=== PATIENT | male | born 2000 | race Two or more races ===

== ENCOUNTER 2025-01-15 15:36 | Emergency (ER) | payer MEDICAID, SELFPAY ==
[2025-01-15 16:04] VITALS: BP 104/73; PULSE 90; RESP 18; TEMP 38.1; O2SAT 99; BMI 22.3
[2025-01-15] MEDS: cefTRIAXone SOD INJ 1,000 MG VIAL 1000 MG IM (16:24)
[2025-01-15] MEDS: IBUPROFEN TAB 600 MG TABLET PO (16:24)
[2025-01-15] MEDS: DEXAMETHASONE SOD PHOS INJ 10 MG/ML VIAL PO (16:26)
[2025-01-15] MEDS: LIDOCAINE HCL 1% 20 ML VIAL 2.1 ML INFL (16:27)
--- NOTE | 2025-01-15 16:28 | EDNOTE_ITS ---
ED Fever RME/HPI General Chief Complaint: Fever Stated Complaint: FEVER, BACK PAIN. BUMPS IN MOUTH Time Seen by Provider: 01/15/25 15:44 Arrival date/time: 01/15/25 15:36 24-year-old male with no significant medical problems presents to the emergency department today for complaints of fever, lower back pain, sore throat ongoing since yesterday Limitations: no limitations Related Data Previous Rx's ?Medication ?Instructions ?Recorded amoxicillin 875 mg-potassium 1 tab PO BID 7 days #14 t abs 01/15/25 clavulanate 125 mg tablet ibuprofen 600 mg tablet 600 mg PO Q6H #30 tabs 01/15 Allergies Allergy/AdvReac Type Severity Reaction Status Date / Time No Known Allergies Allergy Verified 01/15/25 15:38 Review of Systems Review of Systems Systems Reviewed: All systems reviewed, normal except as documented Constitutional Constitutional: Reports system reviewed and no additional complaints, except as documented, Denies fever(s) and Denies headache(s) Eyes Eyes: Reports system reviewed and no additional complaints, except as documented and Denies blurry vision ENT Ears, Nose, Mouth, and Throat: Reports system reviewed and no additional complai nts, except as documented, Denies headache(s), Denies nasal congestion, Denies nasal discharge and Reports sore throat Cardiovascular Cardiovascular: Reports system reviewed and no additional complaints, except as documented, Denies chest pain and Denies dyspnea Respiratory Respiratory: Reports system reviewed and no additional complaints, except as documented, Denies chest congestion, Denies cough and Denies dyspnea Gastrointestinal Gastrointestinal: Reports system reviewed and no additional complaints, except as documented and Denies abdominal pain Integumentary/Breasts Skin/Breast: Reports system reviewed and no additional complaints, except as documented and Denies rash Neurologic Neurologic: Reports system reviewed and no additional complaints, except as documented, Reports as per HPI and Denies headache(s) Past Medical History Social History SMOKING STATUS: Never smoker Physical Exam General Limitations: no limitations General appearance: alert and in no apparent distress Head Head exam: atraumatic Eye Eye exam: Present normal appearance, PERRL and EOMI ENT ENT exam: Present normal oropharynx and mucous membranes moist Expanded ENT Exam Mouth exam: Absent drooling or trismus Throat exam: Present tonsillar erythema, tonsillomegaly and tonsillar exudate; Absent R peritonsillar mass, L peritonsillar mass or muffled voice Neck Neck exam: Present normal inspection, full ROM and trachea midline Chest Chest inspection: Present normal inspection and symmetric chest wall rise Respiratory Respiratory exam: Present normal lung sounds bilaterally Cardiovascular Cardiovascular exam: Present regular rate, normal rhythm and normal heart sounds Abdominal Exam Abdominal exam: Present soft and normal bowel sounds Extremities Exam Extremities exam: Present normal inspection and full ROM Back Exam Back exam: Present normal inspection and full ROM Neurological Exam Neurological exam: Present alert, oriented X3 and CN II-XII intact Psychiatric Psychiatric exam: Present normal affect and normal mood Skin Skin exam: Present warm, dry, intact and normal color ED Exam General Limitations: Present no limitations General appearance: Present alert and in no apparent distress Head Head exam: Present atraumatic Eye Eye exam: Present normal appearance, PERRL and EOMI ENT ENT exam: Present normal oropharynx and mucous membranes moist Expanded ENT Exam Mouth exam: Absent drooling or trismus Throat exam: Present tonsillar erythema, tonsillomegaly and tonsillar exudate; Absent R peritonsillar mass, L peritonsillar mass or muffled voice Neck Neck exam: Present normal inspection, full ROM and trachea midline Chest Chest inspection: Present normal inspection and symmetric chest wall rise Respiratory Respiratory exam: Present normal lung sounds bilaterally Cardiovascular Cardiovascular exam: Present regular rate, normal rhythm and normal heart sounds Abdominal Exam Abdominal exam: Present soft and normal bowel sounds Extremities Exam Extremities exam: Present normal inspection and full ROM Back Exam Back exam: Present normal inspection and full ROM Neurological Exam Neurological exam: Present alert, oriented X3 and CN II-XII intact Psychiatric Psychiatric exam: Present normal affect and normal mood Skin Skin exam: Present warm, dry, intact and normal color Course Quality Measures none Orders Category Date Time Status Dexamethasone Inj [Decadron Inj] Med 01/15/25 16:12 Discontinued 10 mg PO X1 ONE Ibuprofen Tab [Motrin Tab] Med 01/15/25 16:12 Discontinued 600 mg PO Q8HR PRN Lidocaine 1% 20 ml [Xylocaine 1% 20 ML] Med 01/15/25 16:12 Discontinued 2.1 ml INFL X1 ONE cefTRIAXone [Rocephin] Med 01/15/25 16:12 Discontinued 1,000 mg IM X1 ONE Vital Signs Vital signs: Vital Signs Temperature 100.5 F H 01/15/25 16:04 Pulse Rate 90 01/15/25 16:04 Respiratory Rate 18 06/17/25 16:04 Blood Pressure 104/73 01/15/25 16:04 Pulse Oximetry (%) 99 01/15/25 16:04 Oxygen Delivery Method Room Air 01/15/25 16:04 O2 saturation 99% room air within normal notes Fever MDM Narrative MDM Narrative:: 24-year-old male with no significant medical problems presents to the emergency department today for complaints of fever, lower back pain, sore throat ongoing since yesterday On exam patient has low-grade temp and appears to have streptococcal pharyngitis Patient medicated here patient does not appear ill or toxic in no acute distress despite having low-grade temp patient has no abdominal pain Patient discharged home in no distress to follow-up with primary care doctor in the next 24 to 48 hours and for any worsening symptoms to return to the ER immediately Patient data External records reviewed:: None Clinical information provided by:: patient Social determinants that could affect healthcare access:: none Patient has the following chronic illnesses:: None How is presenting disease/condition affected by chronic disease/condition?: no chronic disease Evaluation data The following diagnostics were reviewed and interpreted by me:: other (specify) (N/A) Lab and/or radiology exams considered but not ordered:: Consider not ordered Interpretation Summary: N/A Medications / Prescriptions Medications or Prescriptions considered but not ordered:: Given Medication administrations:: Medication Administration History Discontinued Medications Ceftriaxone Sodium (Ceftriaxone Sod Inj 1,000 Mg Vial) 1,000 mg IM X1 ONE Stop: 01/15/25 16:13 Last Admin: 01/15/25 16:24 Dose: 1,000 mg Documented By: MAHOGANY Dexamethasone Sodium Phosphate (Dexamethasone Sod Phos Inj 10 Mg/Ml Vial) 10 mg PO X1 ONE Stop: 01/15/25 16:13 Last Admin: 01/15/25 16:26 Dose: 10 mg Documented By: MAHOGANY Ibuprofen (Ibuprofen Tab 600 Mg Tablet) 600 mg PO Q8HR PRN PRN Reason: PAIN OR FEVER > 101 Stop: 02/14/25 16:11 Last Admin: 01/15/25 16:24 Dose: 600 mg Documented By: MAHOGANY Lidocaine HCl (Lidocaine Hcl 1% 20 Ml Vial) 2.1 ml INFL X1 ONE Stop: 01/15/25 16:13 Last Admin: 01/15/25 16:27 Dose: 2.1 ml Documented By: KF Given Consultations Consultation(s) initiated? (list below): No Diagnosis Fever Differential Diagnosis: fever of unknown origin, viral infection, influenza and other (Pharyngitis) Most likely diagnosis given after review of the tests above:: Pharyngitis Admission Indicated Admission indicated?: not indicated Admission Request Was there a request for admission?: No Disposition Plan Disposition Plan: Discharge Discharge Attestation Discharge Attestation: The patient and all family members were given an opportunity to ask questions and understood the discharge instructions. Discharge instructions specifically effects, indications for sooner follow up or return to the emergency department, and the expected course of current diagnosis. Patient condition: Stable Discharge Plan Plan Patient Disposition: HOME (Self Care) Discharge Disposition comment: Stable Prescriptions/Referrals Prescriptions/Med Rec: New ibuprofen 600 mg tablet 600 mg PO Q6H Qty: 30 0RF amoxicillin-pot clavulanate 875-125 mg tablet 1 tab PO BID 7 Days Qty: 14 0RF Referrals: No Primary/Family,Physician [Primary Care Provider] - In 1 week Problem List Clinical Impression: Pharyngitis, Fever Patient/Caregiver Discharge Instructions Education Materials: ED URI, Viral, No Abx (Adult) Additional Instructions: Please follow up with your primary care doctor in the next 24-48hrs for any worsening symptoms return here immediately Print Language: Chinese Stand Alone Forms: Kristi Award Info., Work/School Release, Patient Portal Info Letter PA/ECOTHERAPIST Supervising Physician PA/KASHIF Supervising Physician: Dr stratton
== END 2025-01-15 17:44 | disposition home or self-care (01) ==
PROVIDERS: Emergency Provider Family Medicine
DX: J02.9 Acute pharyngitis, unspecified (principal); R50.9 Fever, unspecified
CPT/HCPCS: 96372; 99283; J0696; J1100; J3490; A9270